=== PATIENT | female | born 1975 | race Caucasian/White ===

== ENCOUNTER 2017-02-05 15:38 | Outpatient (CLI) | payer OTHER | END 2017-02-05 15:39 | disposition home or self-care (01) | LOC: DTY/OP 15:38 | PROVIDERS: ATTEND Surgery | DX: E66.01 Morbid (severe) obesity due to excess calories (principal) | CPT/HCPCS: 97802 ==

== ENCOUNTER 2017-05-11 05:41 | Inpatient (IN) | payer OTHER ==
[2017-05-08 12:47] VITALS: BMI 39.0
[2017-05-11] MEDS ORDERED: Heparin 5,000 UNITS/ML VIAL ONE (06:15)
[2017-05-11] MEDS ORDERED: CEFAZOLIN/Water 2 GM/20 ML SYRINGE ONE (06:15)
[2017-05-11] MEDS ORDERED: Fentanyl 100 MCG/2 ML VIAL ONE (06:41)
[2017-05-11] MEDS ORDERED: Bupivacaine/Epinephrine 0.25% 30 ML VIAL ONE (06:44)
--- NOTE | 2017-05-11 06:59 | HP ---
CHIEF COMPLAINT: Morbid obesity. HISTORY: The patient is a 41-year-old female who has been overweight for many years and attempted [facility] weight loss programs without success. She is here for sleeve gastrectomy. PAST MEDICAL HISTORY: Significant for reflux, allergies, back pain. PAST SURGICAL HISTORY: Bilateral inguinal hernia repair. MEDICATIONS: Excedrin, Zyrtec. ALLERGIES: She has no known drug allergies. FAMILY HISTORY: Both parents are alive in good health. SOCIAL HISTORY: She is , no tobacco, occasional alcohol. PHYSICAL EXAMINATION: GENERAL: Height 5 feet 10 inches, weight 275, body mass index 39.5. VITAL SIGNS: Blood pressure 116/69, pulse 73. GENERAL: Well-developed, well-nourished female in no apparent distress. HEENT: Good hair growth. No alopecia. Pupils equal, round, and reactive. Extraocular motor intact . Pharynx clear. Good dentition. NECK: Supple, no thyroid masses, no carotid bruits. BREASTS: There are no palpable breast masses. No lymphadenopathy. LUNGS: Clear. HEART: Regular rate and rhythm. ABDOMEN: Soft, nondistended, nontender, no masses or hernias. BACK: No tenderness or deformity. EXTREMITIES: Good pulses. No pedal edema. ASSESSMENT: Morbid obesity. PLAN: Laparoscopic sleeve gastrectomy. CONSENT: I have discussed the planned procedure as well as risk of bleeding, infection, injury to es ophagus, spleen, loops of bowel, need to open. She understands and gives informed consent.
[2017-05-11] MEDS ORDERED: Midazolam HCl 2 mg/2 ml Vial ONE (07:21)
[2017-05-11] MEDS ORDERED: Scopolamine 1.5 mg/72 hour Patch ONE (07:26)
[2017-05-11] MEDS ORDERED: hydrALAZINE 20 MG/ML VIAL SLOW IVP PRN (09:02)
[2017-05-11] MEDS ORDERED: Dextrose 50% Abboject 50 ML SYRINGE SLOW IVP PRN (09:02)
[2017-05-11] MEDS ORDERED: Hydrocodone-Acetamin 15 ML UDCUP PO PRN (09:02)
[2017-05-11] MEDS ORDERED: diphenhydrAMINE 50 MG/ML VIAL IVP PRN ×2 (09:02→10:14)
[2017-05-11] MEDS ORDERED: Ondansetron HCl/PF 4 MG/2 ML Vial IVP PRN ×3 (09:02→10:14)
[2017-05-11] MEDS ORDERED: Dextrose 5% in Water 1,000 ML IV PRN (09:02)
[2017-05-11] MEDS ORDERED: Promethazine HCl 25 MG/ML VIAL IM PRN ×3 (09:02→10:14)
--- NOTE | 2017-05-11 09:28 | OP ---
PREOPERATIVE DIAGNOSIS: Morbid obesity. SURGEON: Orville Weldon M.D. PROCEDURES PERFORMED: Laparoscopic sleeve gastrectomy, hiatal hernia repair, EGD. INDICATIONS: A 41-year-old female, morbidly obese, who has attempted multiple weight loss programs w ithout success. FINDINGS: She had a moderate size hiatal hernia which was repaired. A 38 [place] bougie was used. PROCEDURE IN DETAIL: After informed consent was obtained, the patient was taken to the operating jacki m and given general endotracheal anesthesia. She was placed in the supine position. Her abdomen was prepped and draped in the usual fashion. Local anesthesia infiltrated subcutaneously and deep and a 12 mm incision was performed approximately 8 inches below the xiphoid slightly to the left. Veress needle inserted. Drop test performed. Pneumoperitoneum was created to a pressure of 15 mmHg. A 0 de gree laparoscope inserted under direct vision, a Diurnal liver retractor was inserted. The left lo be of liver retracted superiorly. A moderate size hiatal hernia was immediately seen. A 12 mm port was placed on the right beneath the pylorus and two 12s placed left subcostal. The omentum was taken off the greater curvature utilizing the LigaSure. The short gastrics divided with LigaSure and the left crura defined with the LigaSure, then the right crura was defined with the LigaSure and the esop hagus fully reduced as the hiatal opening was dissected and then a 38 [place] bougie was inserted and a posterior crural plication was performed with interrupted 0 Ethibond with the Sew-Right and tie kno t device. Then the 38-[place] bougie was directed into the antrum and a linear 60 mm green load stapl er used to divide the antrum to the bougie, gold load along the bougie, and a series of blues through the angle of His. Intraoperative endoscopy was performed. The video endoscope inserted under direc t vision and advanced into the sleeve space. Staple line inspected. There was no bleeding. Staple line then tested by inflating the new stomach with pressurized air under water. There was no air ana k. Stomach decompressed. Scope removed. The remnant stomach removed from the abdomen through the l eft lateral port site. Hemostasis was assured. The fascia closed with 0 Vicryl suture and the GraNe e needle. Trocars and retractors removed. The skin closed with interrupted 4-0 Vicryl. Dermabond a pplied. The patient tolerated the procedure well and transferred to recovery in good condition. Spo nge and needle count verified correct x2.
[2017-05-11] MEDS ORDERED: diphenhydrAMINE 50 MG/ML VIAL IM PRN (10:14)
[2017-05-11] MEDS ORDERED: Zolpidem Tartrate 5 MG TAB PO PRN (10:14)
[2017-05-11] MEDS ORDERED: Promethazine HCl 25 MG/ML VIAL SLOW IVP PRN (10:14)
[2017-05-11] MEDS ORDERED: Naloxone HCl 0.4 mg/ml Vial IV PRN (10:14)
[2017-05-11] MEDS ORDERED: diphenhydrAMINE 25 MG CAP PO PRN (10:14)
[2017-05-11] MEDS ORDERED: Fentanyl 5000 MCG/250 ML CADD IVPB PRN (10:14)
[2017-05-11] MEDS ORDERED: Communication Order-Pharmacy FS SCH (10:15)
[2017-05-11] MEDS ORDERED: fentaNYL Citrate/PF 2,000 MCG in Sodium Chloride 0.9% 60 ML IV SCH (10:45)
[2017-05-11] MEDS: D5 1/2 NS w/20 mEq KCL 1,000 ML IV SCH ×3 (11:09→21:30)
[2017-05-11] MEDS: CEFAZOLIN/Water 2 GM/20 ML SYRINGE SLOW IVP SCH ×2 (13:59→21:31)
[2017-05-11] MEDS ORDERED: Propofol 200 MG/20 ML VIAL ONE (14:11)
[2017-05-11] MEDS ORDERED: Ondansetron HCl/PF 4 MG/2 ML Vial ONE (14:11)
[2017-05-11] MEDS ORDERED: Glycopyrrolate 0.2 MG/ML 5 ML SYRINGE ONE (14:11)
[2017-05-11] MEDS ORDERED: Lidocaine 1% PF 5 ML VIAL ONE (14:11)
[2017-05-11] MEDS ORDERED: diphenhydrAMINE 50 MG/ML VIAL ONE (14:11)
[2017-05-11] MEDS ORDERED: Ketorolac Tromethamine 30 MG/ML VIAL ONE (14:11)
[2017-05-11] MEDS ORDERED: Dexamethasone 20 MG/5 ML VIAL ONE (14:11)
[2017-05-12 04:18] LABS: #Lymphocytes 1.1 thou/uL (1.20-3.40); #Monocytes 0.8 thou/uL (0.11-0.59); #Neutrophils 7.1 thou/uL (1.40-6.50); %Basophils 0.1 % (0.0-1.0); %Eosinophils 0.2 % (0.0-10.0); %Lymphocytes 12.4 % (21.0-51.0); %Monocytes 8.4 % (0.0-10.0); Mean Corpuscular HGB CONC 33.9 g/dL (32.0-36.0); Mean Corpuscular Hemoglobin 29.8 pg (27.0-31.0); Mean Corpuscular Volume 87.8 fl (81.0-99.0); Mean Platelet Volume 9.3 fL (7.4-10.4); Platelet Count 156 thou/uL (130-400); RBC Distribution Width 12.3 % (11.5-14.5); Red Blood Cell (RBC) Count 4.05 mill/uL (4.20-5.40)
[2017-05-12 04:23] LABS: Anion Gap 13 mmol/L (10-20); BUN (Urea Nitrogen) 6 mg/dL (7.0-18.7); Calc. Creatinine Clearance 186 mL/min (70-130); Calcium 8.3 mg/dL (7.8-10.44); Carbon Dioxide 16 mmol/L (22-29); Chloride 111 mmol/L (98-107); Estimated GFR-MDRD 83; Glucose 129 mg/dL (70-105); Sodium 136 mmol/L (136-145)
[2017-05-12] MEDS ORDERED: Hydrocodone-Acetamin 15 ML UDCUP PO PRN (08:59)
[2017-05-12] MEDS ORDERED: Enoxaparin Sodium 40 MG/0.4 ML SYRINGE SC SCH (09:00)
[2017-05-12] MEDS ORDERED: Pantoprazole 40 MG VIAL IVP SCH (09:00)
--- NOTE | 2017-05-12 09:40 | RAD ---
ESOPHOGRAM: History: Bariatric surgery. FINDINGS: Single column contrast evaluation shows post-operative changes consistent with recent gastric sleeve procedure. There is no evidence of obstruction or leak. POS: MONICA
[2017-05-12 12:52] VITALS: BP 106/72; TEMP 97.9
--- NOTE | 2017-05-12 21:04 | DIS ---
DATE OF ADMISSION: 05/11/2017 DATE OF DISCHARGE: 05/12/2017 ADMISSION DIAGNOSIS: Morbid obesity. DISCHARGE DIAGNOSIS: Morbid obesity. PROCEDURES: Laparoscopic sleeve by Dr. Weldon without complication. CONDITION AT DISCHARGE: Improved. STAFF: Dr. Jeffrey Bateman. HOSPITAL COURSE: See hospital chart for details of hospitalization.
== END 2017-05-12 14:33 | disposition home or self-care (01) | DRG 621 ==
LOC: SURG A 05:41
PROVIDERS: ADMIT Surgery; ATTEND Surgery
PROC: 0DB64Z3 Excision of Stomach, Percutaneous Endoscopic Approach, Vertical (ICD-10-PCS; principal; 2017-05-11)
PROC: 0BQT4ZZ Repair Diaphragm, Percutaneous Endoscopic Approach (ICD-10-PCS; 2017-05-11)
PROC: 3E0T3BZ Introduction of Anesthetic Agent into Peripheral Nerves and Plexi, Percutaneous Approach (ICD-10-PCS; 2017-05-11)
DX: E66.01 Morbid (severe) obesity due to excess calories (principal); K44.9 Diaphragmatic hernia without obstruction or gangrene; Z68.39 Body mass index [BMI] 39.0-39.9, adult
CPT/HCPCS: 36415; 74241; 80048; 85025; 88307; 88312; 94760; C9113; J0131; J1100; J1200; J1644; J1650; J1885; J2001; J2250; J2405; J2704; J3010; J7050

== ENCOUNTER 2017-08-25 15:19 | Outpatient (CLI) | payer BC | END 2017-08-25 15:20 | disposition home or self-care (01) | LOC: BICMAMMO 15:19 | PROVIDERS: ATTEND Radiology Diagnostic Radiology | DX: Z12.31 Encounter for screening mammogram for malignant neoplasm of breast (principal) | CPT/HCPCS: 77063; 77067 ==